=== PATIENT | male | born 1990 | race Hispanic/Latino ===

== ENCOUNTER 2023-11-14 19:45 | Emergency (ER) | payer OTHER, SELFPAY ==
[2023-11-14 19:50] VITALS: BP 146/105
[2023-11-14] MEDS: TORADOL 30 MG IM (22:19)
--- NOTE | 2023-11-14 22:34 | ED.GENMED ---
History of Present Illness
General
Chief Complaint: Musculo-Skeletal Complaint
Source: patient
Exam Limitations: none
Time Seen by Provider: 11/14/23 21:34
Nursing documentation reviewed up to this point in time: agreed with
History of Present Illness
History of Present Illness:
33-year-old male presenting to the emergency department today with concerns of left-sided foot pain over the past 3 days he claims that it seemed to have an acute initial injury when walking 3 days ago has been ongoing otherwise since noticed
inflammation to the arch into the heel of the foot. Denies any fevers chest pain shortness of breath.
Past History
Past History
ED Past Medical History: HTN and Other (Covid 01/11/2020)
ED Past Surgical History: None
Social History
Tobacco: Non-smoker
Alcohol: None
Drug: None
Personal:
Living: with family
Employment: Employed
Family History
Family History: Other (Noncontributory)
Review of Systems
Review of Systems
Allergies reviewed?: Yes
All Other Systems: ROS reviewed and negative except as documented in HPI and ROS
Phy Exam
Physical Exam
Physical Exam:
GENERAL: Alert , in no apparent distress
EYE: pupils equal and reactive
NECK: Supple, no significant adenopathy.
ENT: o/p clr, mmm.
CARDIAC: Regular rate and rhythm .
LUNGS: Clear breath sounds bilaterally, no acute respiratory distress, no wheezes/rales/rhonchi
ABDOMEN: Soft, without focal tenderness, no r/g, no cvat
NEUROLOGICAL: Alert and oriented, no focal neuro deficits
SKIN: Warm and dry, skin intact.
MUSCULOSKELETAL: Mild swelling and irritation to the patient's left foot pain mainly to the arch of the foot without redness or warmth some tenderness to the calcaneus region. Achilles intact normal distal pulses and sensation able to move the
ankle well without obvious significant discomfort when doing so. Increased discomfort mainly with ambulation and, well perfused.
PSYCH: Normal and appropriate interaction.
Course
Orders/Labs/Results
Orders:
Orders
11/14/23 19:53
CR Foot - Left Min 3 Views Urgent
Comment:
Reason For Exam: pain and swelling
11/14/23 22:04
Nicanor Wrap Left-Treatment ONCE
Crutches-Treatment ONCE
Ketorolac [Toradol] 30 mg IM NOW STA
Vital Signs
Initial and Last Documented VS:
Initial Vital Signs
Temp Pulse Resp BP Pulse Ox
97.5 F 79 16 146/105 97
11/14/23 19:50 11/14/23 19:50 11/14/23 19:50 11/14/23 19:50 11/14/23 19:50
Last Documented Vital Signs
Temp Pulse Resp BP Pulse Ox
97.5 F 79 20 146/105 97
11/14/23 19:50 11/14/23 19:50 11/14/23 20:00 11/14/23 19:50 11/14/23 19:50
MDM/Problems Addressed
MDM/Problems Addressed:
33-year-old male presenting to department today with concerns of discomfort over the past 3 days seem to be abrupt in onset while walking 3 days ago ongoing discomfort since. No redness or warmth no signs of infection good range of motion of the
ankle toes and knee. No signs of break in the skin. X-ray showing varying arthritic changes but no acute findings. Patient with potential plantar fasciitis. Advised for close podiatry follow-up return precautions given.
*Critical Care Note
Total Time (30-74mins, 75-104mins- exclusive of procedures): Not Applicable
ED Attending Note
-
Portions of this chart may have been created with voice recognition software.� Occasional wrong word or��sound alike� substitutions may have occurred due to the inherent limitations of voice recognition software.
Discharge Plan
Departure
Patient Disposition: Home (Routine Discharge)
Date of Disposition: 11/14/23
Time of Disposition: 22:36
Patient with high blood pressure during this ER visit?: No
Condition: Good
Covid-19: Not Applicable
Discharge Problem:
Foot pain
Instructions: Foot Sprain ED
Prescriptions:
No Action
lisinopril 5 MG tablet
5 mg PO DAILY
fluticasone propionate 1 SPRAY spray,suspension
1 spray intranasal BID
cholecalciferol (vitamin D3) 1,000 UNITS tablet
1,000 units PO DAILY
dexamethasone [Decadron] 6 MG tablet
6 mg PO DAILY Qty: 4 0RF
acetaminophen 325 MG tablet
650 mg PO Q4HPRN PRN (Reason: fever >/= 100.4F, EDGE,mild pain) 0RF
dextromethorphan-guaifenesin 10 ML syrup
10 ml PO Q4HPRN PRN (Reason: cough) 0RF
ascorbic acid (vitamin C) [Vitamin C] 500 MG tablet
500 mg PO DAILY 0RF
zinc sulfate 220 MG capsule
220 mg PO DAILY 0RF
pantoprazole 40 MG tablet,delayed release (DR/EC)
40 mg PO DAILY Qty: 30 0RF
metformin 500 mg tablet
500 mg PO BID Qty: 60 0RF
Referrals:
Ezekiel Cosme DPM [Specified Professional Personl] - Follow up in 5-7 days
NONE,* [Family Provider] -
Activity Restrictions/Additional Instructions:
You came to the emergency department today with concerns of foot discomfort. Please rest ice compress and elevate and otherwise follow-up with the foot doctor. Return to the emergency department for any worsening, new or concerning symptoms.
Interventions
Interventions:
*Risk Screen - Suicide Last Done: 11/14/23 21:10
*General Assessment Last Done: 11/14/23 21:10
*Neglect/Abuse Screening Last Done: 11/14/23 21:10
ED- Fall Risk Assessment Last Done: 11/14/23 21:10
ED-Musculoskeletal Assessment Last Done: 11/14/23 21:10
Discharge Date and Time
Print Language: CITIZ[place]
== END 2023-11-14 22:47 | disposition home or self-care (01) ==
LOC: EMR 19:45
PROVIDERS: EMERGENCY PHYSICIAN Student in an Organized Health Care Education/Training Program
DX: M79.672 Pain in left foot (principal); X50.1XXA Overexertion from prolonged static or awkward postures, initial encounter
CPT/HCPCS: 99284; 96372; 73630

== ENCOUNTER → 2024-02-18 15:52 | Outpatient (REF) | payer OTHER, SELFPAY | LOC: RAD 15:52 | PROVIDERS: ATTENDING PHYSICIAN Podiatrist; FAMILY PHYSICIAN Family Medicine | DX: M12.9 Arthropathy, unspecified (principal) | CPT/HCPCS: 73610 ==